=== PATIENT | male | born 1985 | race Caucasian/White ===

== ENCOUNTER 2020-11-05 16:11 | Inpatient (IN) | payer OTHER, SELFPAY ==
[2020-11-05] VITALS (8 sets, daily range): BP systolic 118–125; BP diastolic 68–80; PULSE 91–132; RESP 20–23; TEMP 37.2–39.1; O2SAT 89–96
--- NOTE | ~2020-11-05 | CT_ITS ---
EXAMINATION: CTA chest PE protocol DATE: 11/05/2020 18:16 INDICATION: Shortness of breath. COVID positive. TECHNIQUE: Computed tomography (CT) pulmonary angiogram of the chest was performed with 100 mL Omnipa que-350 intravenous contrast. Additional 3D reconstructions utilizing coronal maximum intensity proje ction (MIP) were performed. Automated exposure control and iterative reconstruction technique were em ployed. The dose-length product was 739.67 mGy-cm. COMPARISON: None FINDINGS: Excellent contrast opacification of the pulmonary arteries. There is mild streak artifact from dense contrast in the superior vena cava and right atrium. Tattered respiratory motion artifact most severe at the left lower lung zone and mild to moderate throughout the remainder of the lungs which decreas es sensitivity in the segmental and subsegmental pulmonary arteries of the lingula and basilar left l ower lobe some of the smaller subsegmental pulmonary arteries and remainder of the bilateral mid and lower lung zones. No definitive pulmonary embolism. Extensive peripheral and lower lung predominant p atchy groundglass opacities with appearance and distribution most consistent with COVID pneumonia. No pleural effusion. Heart size is normal. No pericardial effusion. Thoracic aorta is normal in caliber with no dissection. Mild likely reactive right hilar lymphadenopathy. Visualized upper abdomen is un remarkable. Mild thoracic spondylosis with minimal likely physiologic anterior wedging at T11. IMPRESSION: 1. No definitive pulmonary embolism. Sensitivity is significantly decreased due to respiratory motion in some of the smaller pulmonary arteries particularly at the left lower lung zone. 2. Extensive patchy bilateral peripheral and lower lung predominant lung disease most consistent with COVID pneumonia. 3. Mild likely reactive right hilar lymphadenopathy. Reviewed, dictated and finalized at location A. IMPRESSION: 1. No definitive pulmonary embolism. Sensitivity is significantly decreased due to respiratory motion in some of the smaller pulmonary arteries particularly a t the left lower lung zone. 2. Extensive patchy bilateral peripheral and lower lung predominant lung diseas e most consistent with COVID pneumonia. 3. Mild likely reactive right hilar lymphadenopathy.
--- NOTE | ~2020-11-05 | US_ITS ---
EXAMINATION: US venous doppler LE EXAM DATE: 11/09/2020 16:10 INDICATION: Bilateral cramping legs. TECHNIQUE: Multiple grayscale, color flow and Doppler images of the lower extremity deep venous syste ms bilaterally were obtained and reviewed. There is no prior study for comparison. FINDINGS: Right side: The right common femoral, femoral and profunda veins demonstrate normal color flow, respi ratory variation, augmentation and compressibility. Compressibility, color flow confirmed within the right popliteal, posterior tibial, peroneal, and greater saphenous veins. Left side: The left common femoral, femoral and profunda veins demonstrate normal color flow, respira tory variation, augmentation and compressibility. Compressibility, color flow confirmed within the l eft popliteal, posterior tibial, peroneal, and greater saphenous veins. IMPRESSION: 1. No lower extremity deep venous thrombosis bilaterally. Reviewed, dictated and finalized at location A.
--- NOTE | ~2020-11-05 | XR_ITS ---
EXAMINATION: XR chest 1V portable DATE: 11/10/2020 08:52 INDICATION: Leukocytosis. COVID. TECHNIQUE: frontal view of the chest was obtained. COMPARISON: Chest radiograph and CT dated 11/05/2020 FINDINGS: No significant change in diffuse bilateral peripheral and lower lung predominant patchy airspace opac ities consistent with COVID pneumonia. No pleural effusion or pneumothorax. The cardiomediastinal rigoberto houette is normal. IMPRESSION: 1. No change in diffuse bilateral airspace opacities consistent with COVID pneumonia. Reviewed, dictated and finalized at location A. IMPRESSION: 1. No change in diffuse bilateral airspace opacities consistent with COVID pneu monia.
--- NOTE | ~2020-11-05 | XR_ITS ---
EXAMINATION: XR chest 1V portable DATE: 11/05/2020 16:46 INDICATION: COVID presenting with 3 days of dyspnea TECHNIQUE: frontal view of the chest was obtained. COMPARISON: None FINDINGS: There are patchy airspace opacities throughout both lungs consistent with pneumonia. No pleural effus ion or pneumothorax. The cardiomediastinal silhouette is normal. IMPRESSION: 1. Patchy bilateral lung disease consistent with pneumonia. Reviewed, dictated and finalized at location A.
--- NOTE | 2020-11-05 16:16 | ECG_ITS ---
Measurements Intervals [place] Rate: 117 P: 32 AL: 112 QRS: 44 QRSD: 90 T: 20 QT: 300 QTc: 420 Interpretive Statements SINUS TACHYCARDIA DELAYED PRECORDIAL R/S TRANSITION ABNORMAL ECG Electronically Signed On 11-05-2020 18:44:38 CDT by Alf Esquivel D.O.
[2020-11-05 16:35] LABS: Hemoglobin 12.3 g/dL (14.0-18.0); Mean Corpuscular HGB Conc 36.2 g/dl (32-36); Mean Corpuscular Hemoglobin 32.8 pg (26-34); Mean Corpuscular Volume 90.7 fl (80-100); Mean Platelet Volume 8.4 fl (7.4-10.4); Platelet Count Result 276 k/mm3 (150-375); Red Blood Count 3.75 M/mm3 (4.6-6.20); Red Cell Distribution Width 12.7 % (11.5-14.5); White Blood Count 9.5 K/mm3 (4.5-10.0)
[2020-11-05 16:50] LABS: Anion Gap 10 mmol/L (8-16); Blood Urea Nitrogen 14 mg/dL (9-20); Carbon Dioxide 22 mmol/L (22-30); Chloride 102 mmol/L (98-107); Estimated CRCL calculation 121 ml/min; Estimated Glomerular Filt Rate > 60; Glucose 143 mg/dL (65-110); Potassium 3.9 mmol/L (3.4-5.0); Sodium 134 mmol/L (137-145)
[2020-11-05 17:03] LABS: Band Neutrophils Percent 1 % (0-6); Lymphocytes Absolute Manual 1.04 K/mm3 (1.1-4.5); Monocytes Absolute Manual 0.66 K/mm3 (0.1-0.90); Monocytes Percent Manual 7 % (3-9); Neutrophils Absolute Manual 7.79 K/mm3 (1.3-6.7); Neutrophils Percent Manual 81 % (46-73); Platelet Estimate Adequate (Adequate); Total Cells Counted 100
[2020-11-05 17:28] LABS: D Dimer 7.79 ug/mL (<0.48)
--- NOTE | 2020-11-05 19:51 | PC.NURSE ---
ambulated pt to room, pt saturation dropped to 89% on R. provider aware
--- NOTE | 2020-11-05 20:09 | ED.SOB ---
HPI - SOB/Dyspnea General Chief Complaint: Shortness of Breath/Dyspnea Stated Complaint: covid+/ SOB Time Seen by Provider: 11/05/20 19:43 History of Present Illness HPI Narrative: Patient is a 35-year-old male who presents ER with shortness of breath. Recently diagnosed with COVID-19. Has had an increase shortness of breath with persistent cough. Nonproductive. Endorses fevers and chills. He is unvaccinated. With ambulation to the room he was satting in the upper 80s. Patient does endorse fatigue. Patient also reports chest/back pain with deep breath. Related Data Home Medications Medication Instructions Recorded Confirmed gemfibrozil 600 mg PO BID 11/06/20 11/06/20 Allergies Allergy/AdvReac Type Severity Reaction Status Date / Time No Known Allergies Allergy Verified 11/05/20 23:45 Review of Systems Review of Systems: All systems reviewed & are unremarkable except as noted in HPI and below Constitutional: Constitutional: Reports chills, Reports fatigue, Reports fever(s) and Reports weakness ENT: Denies nasal congestion and Denies sore throat Cardiovascular: Cardiovascular: Reports chest pain, Denies rapid heart rate and Denies radiating jaw, neck or arm pain Respiratory: Respiratory: Reports cough, Reports dyspnea and Denies wheezing Gastrointestinal: Gastrointestinal: Denies abdominal pain, Denies nausea and Denies vomiting Musculoskeletal: Musculoskeletal: Denies arthralgias and Denies muscle cramps PMFSH Past Medical History Medical History (Updated 11/06/20 @ 20:20 by Chema Rehman MD) Hyperlipidemia Surgical History Surgical History (Updated 11/06/20 @ 20:19 by Chema Rehman MD) No pertinent past surgical history Family History Family History (Updated 11/05/20 @ 23:56 by Caroline Puri RN) Father Lung cancer Cancer of pancreas Mother Diabetes mellitus Social History Social History Smoking status: Former smoker Tobacco type: cigarettes Second hand tobacco smoke exposure: No Additional smoking assessment comments: q 4 mths pack lasted Alcohol intake: former Substance use: never Spiritual care concerns: No Exam Narrative: GENERAL: Unwell-appearing, well-nourished, and in no acute distress. HEAD: Normocephalic, atraumatic. EYES: PERRL and EOMI. CHEST: Clear to auscultation. No respiratory distress. HEART: Regular rate and rhythm. Normal peripheral pulses. ABDOMEN: Soft, nontender, nondistended. EXTREMITIES: Normal range of motion. No edema. SKIN: Warm, dry, no rash. NEURO: Alert and oriented x3. PSYCH: Normal mood and affect. Course Course Emergency Course: Patient would benefit from admission and IV steroids. May be a candidate for remdesivir and will discuss with hospitalist. Vital Signs Vital signs: Vital Signs Temperature 99.1 F 11/05/20 16:18 Pulse Rate 116 H 11/05/20 16:18 Respiratory Rate 20 11/05/20 16:18 Blood Pressure 125/68 11/05/20 16:18 Pulse Oximetry 94 11/05/20 16:18 Temperature 98.4 F 11/06/20 16:00 Pulse Rate 94 11/06/20 16:00 Respiratory Rate 20 11/06/20 16:00 Blood Pressure 116/74 11/06/20 16:00 Pulse Oximetry 93 11/06/20 16:00 MDM - SOB/Dyspnea Lab Data Result diagrams: 11/05/20 16:23 11/06/20 06:09 Labs: Lab Results 11/05/20 11/05/20 11/05/20 Range/Units 16:23 16:23 16:23 WBC 9.5 (4.5-10.0) K/mm3 RBC 3.75 L (4.6-6.20) M/mm3 Hgb 12.3 L (14.0-18.0) g/dL Hct 34.0 L (42.0-52.0) % MCV 90.7 (80-100) fl MCH 32.8 (26-34) pg MCHC 36.2 H (32-36) g/dl RDW 12.7 (11.5-14.5) % Plt Count 276 (150-375) k/mm3 MPV 8.4 (7.4-10.4) fl Immature Gran % (Auto) Not Reportable Neut % (Auto) Not Reportable Lymph % (Auto) Not Reportable [place] % (Auto) Not Reportable Eos % (Auto) Not Reportable Baso % (Auto) Not Reportable Lymph # (Auto) Not Reportable [place] # (Auto) Not
[2020-11-05] MEDS: DEXAMETHASONE SOD PHOS INJ 4 MG/ML VIAL 6 MG IV PUSH (21:02)
[2020-11-05] MEDS: ACETAMINOPHEN 500 MG TABLET 1000 MG PO (21:49)
--- NOTE | 2020-11-05 22:57 | PM.IMHP ---
H&P: HPI History of Present Illness Date/Time: 11/05/20 22:57 Chief Complaint: SHORTNESS OF BREATH Narrative: THIS IS 35-YEAR-OLD MALE WITH PAST MEDICAL HISTORY OF HYPERLIPIDEMIA PRESENTS TO THE HOSPITAL WITH INCREASED SHORTNESS OF BREATH. HE STATES THAT HE WAS HAVING HIS SOME SYMPTOMS OF COVID WHICH INCLUDES COUGH AND FEVER STARTED SINCE SATURDAY/FOR WHICH HE WENT TO GET HIS COVID TEST DONE WHICH CAME BACK POSITIVE. HE WAS DOING FINE HOWEVER I STARTED GETTING PROGRESSIVELY GET WORSE WITH THE INCREASING SHORTNESS OF BREATH AND HENCE CAME TO THE ER FOR EVALUATION TODAY. PATIENT WAS TACHYCARDIC WITH MILD FEVER ON ADMISSION WHICH BUMPED UP TO FEVER OF 102.3 AND HYPOXIA OF 89% ON ROOM AIR FOR WHICH HE WAS PLACED ON SUPPLEMENTAL OXYGEN. HE WAS FURTHER EVALUATED CHEST X-RAY WHICH SHOWED PNEUMONIA BILATERALLY TYPICAL OF COVID. D-DIMER WAS ELEVATED AND HEAD CT WAS DONE WHICH CAME BACK NEGATIVE FOR PE BUT SHOWED FINDINGS OF COVID 19 RELATED PNEUMONIA. WITH HYPOXIA HE WAS STARTED ON DECADRON AND WAS ADMITTED FOR FURTHER EVALUATION AND MANAGEMENT. Review of Systems Review of Systems: - CONSTITUTIONAL: Denies weight loss, REPORTS fever and chills. - HEENT: Denies changes in vision and hearing - RESPIRATORY: REPORTS SOB and cough. - CV: Denies palpitations and CP. - GI: Denies abdominal pain, nausea, vomiting and diarrhea. - : Denies dysuria and urinary frequency. - MSK: Denies myalgia and joint pain. - SKIN: Denies rash and pruritus. - NEUROLOGICAL: Denies headache and syncope. - PSYCHIATRIC: Denies recent changes in mood. Denies anxiety and depression. All systems reviewed & are unremarkable except as noted in HPI and below Constitutional: Constitutional: Reports fatigue and Reports weakness Neurologic: Reports weakness Endocrine: Endocrine: Reports fatigue [facility] Family History Family History (Updated 11/05/20 @ 23:56 by Caroline Puri RN) Father Lung cancer Cancer of pancreas Mother Diabetes mellitus Social History Social History Smoking status: Former smoker Tobacco type: cigarettes Second hand tobacco smoke exposure: No Additional smoking assessment comments: q 4 mths pack lasted Alcohol intake: former Substance use: never Spiritual care concerns: No Meds Home Medications and Allergies Home Medications Medication Instructions Recorded Confirmed Type gemfibrozil 600 mg PO BID 11/06/20 11/06/20 History Allergies Allergy/AdvReac Type Severity Reaction Status Date / Time No Known Allergies Allergy Verified 11/05/20 23:45 Vital Signs Vital Signs - 24 hr 11/05/20 16:18 11/05/20 19:51 11/05/20 20:15 Temperature 99.1 F Pulse Rate 116 H 132 H Respiratory Rate 20 22 H Blood Pressure 125/68 Pulse Oximetry 94 89 L 92 11/05/20 20:20 11/05/20 20:45 11/05/20 21:12 Temperature 102.3 F H Pulse Rate 110 H 107 H Respiratory Rate 23 H 22 H Blood Pressure 121/78 123/80 Pulse Oximetry 95 96 95 Exam Narrative: GENERAL: The patient is well developed, not in acute distress HEENT: Nonicteric sclerae, PERRLA, EOMI. Oropharynx clear. Moist mucous membranes. Conjunctivae appear well perfused. CHEST: Chest wall is nontender. HEART: Regular rate and rhythm without murmur, rubs, or gallops LUNGS: BILATERAL CRACKLES. no respiratory distress ABDOMEN: Soft, positive bowel sounds, non-tender, no organomegaly. SKIN: No rash, no excessive bruising, petechiae, or purpura. NEUROLOGIC: Cranial nerves II-XII intact, alert and oriented x 3, no gross motor deficits EXTREMITIES: no edema, cyanosis or clubbing Extrem: General: normal exam except as noted and no edema H&P: Results Labs Labs: Short CBC 11/05/20 Range/Units 16:23 WBC 9.5 (4.5-10.0) K/mm3 Hgb 12.3 L (14.0-18.0) g/dL Hct 34.0 L (42.0-52.0) % Plt Count 276 (150-375) k/mm3 [facility] 11/05/20 16:23 Sodium 134 L Potassium 3.9 Chloride 102 Carbon Dioxide 22 BUN 14 Creatinine 0.9
--- NOTE | 2020-11-05 23:48 | ADMGEN ---
This patient, Diego Medley, was admitted to [facility] Surg Room 321-01 at 23:30. Patient/family oriented to hospital policies and general routines including ID bracelet, bed and alarms, visiting hours, pain management, procedures, bathroom and other care routines, personal items, smoking policy, room service/diet, and visiting hours. Information on how to activate the Rapid Response Team has been discussed. Patient/Family are encouraged to report perceived risks to care and to ask questions if they do not understand what they are told or what they should do.
--- NOTE | 2020-11-05 23:49 | ADMGEN ---
This patient, Diego Medley, was admitted to 3 [facility] Surg Room 321-01. Patient/family oriented to hospital policies and general routines including ID bracelet, bed and alarms, visiting hours, pain management, procedures, bathroom and other care routines, personal items, smoking policy, room service/diet, and visiting hours. Information on how to activate the Rapid Response Team has been discussed. Patient/Family are encouraged to report perceived risks to care and to ask questions if they do not understand what they are told or what they should do.
[2020-11-06] VITALS (11 sets, daily range): BP systolic 106–127; BP diastolic 65–80; PULSE 73–94; RESP 18–20; TEMP 36–36.9; O2SAT 92–97; BMI 32.2
[2020-11-06 01:07] LABS: Procalcitonin 1.1 ng/mL
[2020-11-06 01:25] LABS: Alanine Aminotransferase 95 U/L (4-50); Estimated CRCL calculation 122 ml/min; Estimated Glomerular Filt Rate > 60
[2020-11-06] MEDS: gemfibroziL 600 MG TABLET PO ×2 (06:37→17:38)
[2020-11-06] MEDS: HYDROcodone/acetaminophen (*CRX) 5-325 MG TABLET 1 TAB PO ×2 (06:41→22:17)
[2020-11-06] MEDS: guaiFENesin/DEXTROMETHORPHAN 10 ML UDC PO ×3 (07:02→22:17)
[2020-11-06 07:20] LABS: INR 1.1; Prothrombin Time 14.2 Seconds (11.1-14.7)
[2020-11-06 07:29] LABS: Alanine Aminotransferase 99 U/L (4-50); Estimated CRCL calculation 122 ml/min; Estimated Glomerular Filt Rate > 60
[2020-11-06] MEDS: REMDESIVIR 200 MG/NS 250 ML 200 MG/250 ML BAG 250 MG IVPB (08:25)
[2020-11-06] MEDS: ENOXAPARIN 40 MG/0.4 ML SYRINGE SUB-Q ×2 (08:25→20:12)
[2020-11-06] MEDS: ALBUTEROL SULFATE (*SP) INHALER 4 PUFF INHALATION ×3 (09:04→21:50)
[2020-11-06 11:38] LABS: CRP 32.8 mg/dL (<1.0)
[2020-11-06 12:29] LABS: Lactate Dehydrogenase 1538 U/L (313-618)
--- NOTE | 2020-11-06 12:38 | PM.IMPN ---
Progress Note: A&P Assessment and Plan (1) Pneumonia due to COVID-19 virus: Code(s): U07.1 - COVID-19; J12.82 - Pneumonia due to coronavirus disease 2019 Status: Acute Assessment and Plan: Patient was tested positive for COVID on Saturday11/02/2020 Shortness of breath with activity in talking Patient found to be hypoxic at 89% on room air Supplemental oxygen wean to maintain a saturation greater than 92% Remdesivir and Decadron x5 days (day 1) Lovenox 40 mg subQ q.12 D-dimer elevated at 7.79 Will check inflammatory markers tomorrow Consider Actemra if oxygen requirement continues to elevate CTA negative for PE did show COVID pneumonia Inhalers Guaifenesin 600 mg q.12 Encourage prone positioning (2) Acute respiratory failure with hypoxia: Code(s): J96.01 - Acute respiratory failure with hypoxia Status: Acute Assessment and Plan: See above (3) Elevated d-dimer: Code(s): R79.89 - Other specified abnormal findings of blood chemistry Status: Acute Assessment and Plan: D-dimer 7.79 CTA showed COVID and PE Trend labs Labs in a.m. (4) Hyperlipidemia: Code(s): E78.5 - Hyperlipidemia, unspecified Status: Acute Assessment and Plan: Continue home medications Lipid panel in the a.m. Time Spent With Patient Time with patient: Greater than 35 minutes Subjective Date/time seen: 11/06/20 10:00 Interval history: Patient is a 35-year-old female with a past medical history of hyperlipidemia who presented to the ED with increased shortness of breath. Patient stated that he is a little bit better still day if not the same. He states that he gets shortness of breath with moving, lots of activity, talking. He also stated that his urine has been dark yellow his appetite has been suppressed. He stated that he is trying to drink more however it has been really hard. He also has a cough that is producing a white clear thick bloody sputum. He is also complaining of congestion. He still the taste and smell however they are offset. Patient denies chest pain, weakness, fatigue, nausea, vomiting, abdominal pain. Patient stated that he was not COVID vaccinated because he said that he has been fine thus far and thought he could scoot through this without needing it. Patient is currently on 2 L nasal cannula. Instruction encouragement of laying prone was given. Review of Systems Review of Systems: All systems reviewed & are unremarkable except as noted in HPI and below Exam Const: General: cooperative, no acute distress, well developed, alert, awake, ill appearing and tired appearing Nutritional Appearance: well nourished Orientation/consciousness: patient oriented x3 Limitations: no limitations HENMT: Head: normal to inspection Ears: hearing grossly normal bilaterally General nose exam: Normal external nose present Mouth: Yes Normal oral and palatal mucosa present, Yes lip normal and Yes tongue normal Teeth and gingiva: abnormal tooth and associated gingiva and poor dentition Eyes: General: appearance normal, both eyes and all related structures Neck: Neck: normal visual inspection, full ROM, trachea midline and supple Chest: Chest palpation & inspection: normal inspection of the chest Resp: Effort & Inspection: normal respiratory effort and able to speak in complete sentences Auscultation: clear to auscultation bilaterally Cardio: Jugular venous distension: no JVD Rate: regular rate Rhythm: regular rhythm Heart sounds: S1 normal heart sound present and S2 normal heart sound present Peripheral pulses: Peripheral pulses 2+ throughout GI: Inspection: normal to inspection GI Palp: Yes Soft to palpation and No Tenderness to palpation present (GI) Auscultation: normal bowel sounds Skin: General skin exam: normal color and no rashes or lesions noted Lesions: no lesions Rashes: no rashes Trauma: no laceration
--- NOTE | 2020-11-06 16:51 | PCRCNOTE ---
Window of time for administration has passed. See next scheduled administration.
[2020-11-06] MEDS: ACETAMINOPHEN 325 MG TABLET 650 MG PO (17:40)
[2020-11-06] MEDS: MELATONIN 5 MG TABLET 10 MG PO (22:12)
[2020-11-07] VITALS (9 sets, daily range): BP systolic 103–123; BP diastolic 60–76; PULSE 72–85; RESP 16–20; TEMP 36–37.1; O2SAT 90–98
[2020-11-07] MEDS: SALINE 0.65% NAS SOLN 44 ML BTL 1 SPRAY NASAL (00:29)
[2020-11-07] MEDS: CALCIUM CARBONATE (TUMS) 500 MG (200 MG ELEMENTAL) PO ×2 (00:29→20:40)
[2020-11-07] MEDS: ALBUTEROL SULFATE (*SP) INHALER 4 PUFF INHALATION ×4 (04:02→22:12)
[2020-11-07 06:39] LABS: Basophils Percent Auto 0.2 % (0.2-1.2); Hematocrit 33.1 % (42.0-52.0); Hemoglobin 11.6 g/dL (14.0-18.0); Immature Granulocyte Absolute 0.17 K/mm3 (0.00-0.031); Immature Granulocyte Percent A 1.6 % (0-0.5); Lymphocytes Absolute Auto 1.24 K/mm3 (0.9-3.2); Lymphocytes Percent Auto 11.7 % (18.3-44.2); Mean Corpuscular Hemoglobin 32.1 pg (26-34); Mean Corpuscular Volume 91.7 fl (80-100); Mean Platelet Volume 8.8 fl (7.4-10.4); Monocytes Percent Auto 9.2 % (2.6-8.5); Neutrophils Absolute Auto 8.2 K/mm3 (1.3-6.7); Neutrophils Percent Auto 77.3 % (45.5-73.1); Platelet Count Result 385 k/mm3 (150-375); Red Blood Count 3.61 M/mm3 (4.6-6.20); Red Cell Distribution Width 12.6 % (11.5-14.5); White Blood Count 10.6 K/mm3 (4.5-10.0)
[2020-11-07 06:48] LABS: INR 1.2; Prothrombin Time 14.7 Seconds (11.1-14.7)
[2020-11-07] MEDS: gemfibroziL 600 MG TABLET PO ×2 (06:53→17:50)
[2020-11-07 07:01] LABS: Alanine Aminotransferase 108 U/L (4-50); Albumin Level 3.6 g/dL (3.5-5.1); Alkaline Phosphatase 75 U/L (38-126); Anion Gap 9 mmol/L (8-16); Aspartate Amino Transferase 85 U/L (17-59); Bilirubin,Total 0.6 mg/dL (0.2-1.3); Blood Urea Nitrogen 16 mg/dL (9-20); Calcium 9.2 mg/dL (8.4-10.2); Carbon Dioxide 23 mmol/L (22-30); Chloride 106 mmol/L (98-107); Estimated CRCL calculation 136 ml/min; Estimated Glomerular Filt Rate > 60; Glucose 140 mg/dL (65-110); Magnesium 2.1 mg/dL (1.6-2.3); Potassium 3.8 mmol/L (3.4-5.0); Sodium 138 mmol/L (137-145)
[2020-11-07] MEDS: ENOXAPARIN 40 MG/0.4 ML SYRINGE SUB-Q ×2 (09:32→20:40)
[2020-11-07] MEDS: REMDESIVIR 100 MG/NS 250 ML 100 MG/250 ML BAG 250 MG IVPB (09:55)
--- NOTE | 2020-11-07 13:34 | PM.IMPN ---
Progress Note: A&P Assessment and Plan (1) Pneumonia due to COVID-19 virus: Code(s): U07.1 - COVID-19; J12.82 - Pneumonia due to coronavirus disease 2019 Status: Acute Assessment and Plan: Patient was tested positive for COVID on Saturday11/02/2020 Shortness of breath with activity in talking 88% on room air today Supplemental oxygen wean to maintain a saturation greater than 92% Remdesivir and Decadron x5 days (day 1) Lovenox 40 mg subQ q.12 D-dimer elevated at 7.79, will repeat tomorrow Will check inflammatory markers tomorrow Consider Actemra if oxygen requirement continues to elevate CTA negative for PE did show COVID pneumonia Inhalers Guaifenesin 600 mg q.12 Encourage prone positioning (2) Acute respiratory failure with hypoxia: Code(s): J96.01 - Acute respiratory failure with hypoxia Status: Acute Assessment and Plan: See above (3) Elevated d-dimer: Code(s): R79.89 - Other specified abnormal findings of blood chemistry Status: Acute Assessment and Plan: D-dimer 7.79 CTA showed COVID and PE Trend labs Labs in a.m. (4) Hyperlipidemia: Code(s): E78.5 - Hyperlipidemia, unspecified Status: Acute Assessment and Plan: Continue home medications Time Spent With Patient Time with patient: Greater than 35 minutes Subjective Date/time seen: 11/07/20 13:34 Interval history: Patient is a 35-year-old female with a past medical history of hyperlipidemia who presented to the ED with increased shortness of breath. patient stated that he feels about the same today. He did do some prone positioning yesterday he did say that his cough is little worse today. He stated his cough was dry sometimes productive other times. His sputum is gutierrez and frothy. Patient did say that he was weak and tired and does get short of breath with activity. He was able to have 2 bowel movements yesterday that were diarrhea in nature. He also stated that he was having issues with GERD. Patient denies chest pain, weakness, fatigue, nausea, vomiting, abdominal pain. Review of Systems Review of Systems: All systems reviewed & are unremarkable except as noted in HPI and below Exam Const: General: cooperative, no acute distress, well developed, alert, awake, ill appearing and tired appearing Nutritional Appearance: well nourished Orientation/consciousness: patient oriented x3 Limitations: no limitations HENMT: Head: normal to inspection Ears: hearing grossly normal bilaterally General nose exam: Normal external nose present Mouth: Yes Normal oral and palatal mucosa present, Yes lip normal and Yes tongue normal Teeth and gingiva: abnormal tooth and associated gingiva and poor dentition Eyes: General: appearance normal, both eyes and all related structures Neck: Neck: normal visual inspection, full ROM, trachea midline and supple Chest: Chest palpation & inspection: normal inspection of the chest Resp: Effort & Inspection: normal respiratory effort and able to speak in complete sentences Auscultation: clear to auscultation bilaterally Cardio: Jugular venous distension: no JVD Rate: regular rate Rhythm: regular rhythm Heart sounds: S1 normal heart sound present and S2 normal heart sound present Peripheral pulses: Peripheral pulses 2+ throughout GI: Inspection: normal to inspection Auscultation: normal bowel sounds Skin: General skin exam: normal color and no rashes or lesions noted Lesions: no lesions Rashes: no rashes Trauma: no lacerations or abrasions Wounds: no wounds Hair: normal Nails: normal Neuro: General: patient oriented x3, moves all extremities and Normal light touch and pain sensation Speech: normal speech Gait exam (Neuro): Normal gait present Extrem: General: normal to inspection, normal exam except as noted and no edema Right upper extremity: normal to inspection Left upper extremity: no
[2020-11-07] MEDS: FAMOTIDINE 20 MG TABLET PO (20:40)
[2020-11-07] MEDS: guaiFENesin/DEXTROMETHORPHAN 10 ML UDC PO (20:40)
[2020-11-07] MEDS: MELATONIN 5 MG TABLET 10 MG PO (20:40)
[2020-11-07] MEDS: HYDROcodone/acetaminophen (*CRX) 5-325 MG TABLET 1 TAB PO (20:40)
[2020-11-08] VITALS (10 sets, daily range): BP systolic 111–127; BP diastolic 62–78; PULSE 70–104; RESP 16–20; TEMP 36.3–37.1; O2SAT 92–95
[2020-11-08] MEDS: ALBUTEROL SULFATE (*SP) INHALER 4 PUFF INHALATION ×4 (02:32→21:00)
[2020-11-08 07:26] LABS: Basophils Percent Auto 0.2 % (0.2-1.2); Eosinophils Absolute Auto 0.1 K/mm3 (0-0.3); Eosinophils Percent Auto 0.5 % (0-4.4); Hematocrit 33.8 % (42.0-52.0); Hemoglobin 11.8 g/dL (14.0-18.0); Immature Granulocyte Absolute 0.25 K/mm3 (0.00-0.031); Immature Granulocyte Percent A 2.2 % (0-0.5); Lymphocytes Absolute Auto 1.66 K/mm3 (0.9-3.2); Lymphocytes Percent Auto 14.5 % (18.3-44.2); Mean Corpuscular HGB Conc 34.9 g/dl (32-36); Mean Corpuscular Hemoglobin 33.1 pg (26-34); Mean Corpuscular Volume 94.9 fl (80-100); Mean Platelet Volume 8.5 fl (7.4-10.4); Monocytes Absolute Auto 0.9 K/mm3 (0.1-0.6); Monocytes Percent Auto 8.1 % (2.6-8.5); Neutrophils Absolute Auto 8.6 K/mm3 (1.3-6.7); Neutrophils Percent Auto 74.5 % (45.5-73.1); Platelet Count Result 373 k/mm3 (150-375); Red Blood Count 3.56 M/mm3 (4.6-6.20); White Blood Count 11.5 K/mm3 (4.5-10.0)
[2020-11-08 07:45] LABS: Alanine Aminotransferase 111 U/L (4-50); Albumin Level 3.6 g/dL (3.5-5.1); Alkaline Phosphatase 74 U/L (38-126); Anion Gap 8 mmol/L (8-16); Aspartate Amino Transferase 82 U/L (17-59); Bilirubin,Total 0.7 mg/dL (0.2-1.3); Blood Urea Nitrogen 13 mg/dL (9-20); CRP 5.9 mg/dL (<1.0); Calcium 8.7 mg/dL (8.4-10.2); Carbon Dioxide 24 mmol/L (22-30); Chloride 106 mmol/L (98-107); Estimated CRCL calculation 136 ml/min; Estimated Glomerular Filt Rate > 60; Glucose 95 mg/dL (65-110); Lactate Dehydrogenase 1179 U/L (313-618); Magnesium 1.9 mg/dL (1.6-2.3); Potassium 4.1 mmol/L (3.4-5.0); Sodium 138 mmol/L (137-145)
[2020-11-08 07:59] LABS: INR 1.2; Prothrombin Time 15.2 Seconds (11.1-14.7)
[2020-11-08] MEDS: gemfibroziL 600 MG TABLET PO ×2 (08:00→16:05)
[2020-11-08 08:02] LABS: D Dimer 3.37 ug/mL (<0.48)
[2020-11-08] MEDS: ENOXAPARIN 40 MG/0.4 ML SYRINGE SUB-Q (09:16)
[2020-11-08] MEDS: FAMOTIDINE 20 MG TABLET PO ×2 (09:16→20:13)
[2020-11-08] MEDS: BENZOCAINE/MENTHOL (*BKC) 18 EA LOZENGE 1 LOZENGE PO (09:18)
[2020-11-08] MEDS: REMDESIVIR 100 MG/NS 250 ML 100 MG/250 ML BAG 250 MG IVPB (10:04)
--- NOTE | 2020-11-08 15:16 | PM.IMPN ---
Progress Note: A&P Assessment and Plan (1) Pneumonia due to COVID-19 virus: Code(s): U07.1 - COVID-19; J12.82 - Pneumonia due to coronavirus disease 2019 Status: Acute Assessment and Plan: Patient was tested positive for COVID on Saturday11/02/2020 Shortness of breath with activity in talking 96% on 2L via NC. Supplemental oxygen wean to maintain a saturation greater than 92% Remdesivir and Decadron x5 days (day #2) Lovenox 40 mg subQ daily D-dimer elevated at 7.79, repeat today decreased to 3.37, LDH decreased 1538 to 1179, CRP decreased 32.8 to 5.9. Consider Tocilizumab if oxygen requirement continues to elevate CTA negative for PE, but did show COVID pneumonia Inhalers Q6hrs scheduled Guaifenesin 600 mg q.12 Encourage prone positioning (2) Acute respiratory failure with hypoxia: Code(s): J96.01 - Acute respiratory failure with hypoxia Status: Acute Assessment and Plan: See above (3) Elevated d-dimer: Code(s): R79.89 - Other specified abnormal findings of blood chemistry Status: Acute Assessment and Plan: CTA showed COVID and PE Decreased with other inflammatory markers, elevated due to COVID PNA (4) Hyperlipidemia: Code(s): E78.5 - Hyperlipidemia, unspecified Status: Acute Assessment and Plan: Continue home medications Time Spent With Patient Time with patient: 25 - 35 minutes Subjective Date/time seen: 11/08/20 15:16 Interval history: Patient is a 35-year-old female with a past medical history of hyperlipidemia who presented to the ED with increased shortness of breath after having a Positive COVID Test 11/02/20 and he was Unvaccinated. Date of service 11/08/2020: Patient reports feeling about the same as he did yesterday. He still having some shortness of breath at times, trouble taking deep breath, dry cough. He has some lightheadedness and dizziness when walking to the bathroom. He has some tenderness to palpation of his chest wall due to his coughing. Denies any fevers, chills, nausea, vomiting, abdominal pain, leg swelling, calf pain, or any other symptoms at this time. Review of Systems Review of Systems: All systems reviewed & are unremarkable except as noted in HPI and below Exam Narrative: General: 35-year-old man sitting up the chair eating lunch. Appears comfortable on 2L via NC with O2 96%. Walked him to the bathroom without any hypoxemia with exertion. In no acute distress. Skin: No jaundice or cyanosis. Good skin turgor. Neck: Full range of motion. Supple. Respiratory: Lungs are clear to auscultation bilaterally. No wheezing, rales or rhonchi. Some reproducible tenderness to palpation of chest wall diffusely. No signs of trauma. Cardiovascular: The heart has a regular rate and rhythm without murmur. Lower extremities: No lower extremity edema. Distal pulses are easily palpated. No calf tenderness to palpation. Gastrointestinal: The abdomen is soft, nontender and nondistended with active bowel sounds. Psychiatric: Lucid and oriented. Memory intact. Neurologic: No focal deficits. Speech is clear. No facial drooping. Objective Data Vital Signs Vital Signs: Vital Signs - 24 hr 11/07/20 15:25 11/07/20 16:00 11/07/20 20:00 Temperature 98.7 F 98.4 F Pulse Rate 78 80 Respiratory Rate 18 20 Blood Pressure 122/69 122/75 Pulse Oximetry 98 94 92 11/07/20 22:16 11/08/20 00:00 11/08/20 02:33 Temperature 98.1 F Pulse Rate 74 78 70 Respiratory Rate 20 Blood Pressure 116/68 Pulse Oximetry 96 94 11/08/20 04:00 11/08/20 08:00 11/08/20 09:20 Temperature 97.4 F L 98.7 F Pulse Rate 104 H 101 H 71 Respiratory Rate 18 18 20 Blood Pressure 122/62 123/78 Pulse Oximetry 94 95 11/08/20 12:00 11/08/20 14:09 Temperature 98.4 F Pulse Rate 89 70 Respiratory Rate 16 20 Blood Pressure 127/74 Pulse Oximetry 94 Intake/Output Int
[2020-11-08] MEDS: guaiFENesin/DEXTROMETHORPHAN 10 ML UDC PO (20:11)
[2020-11-08] MEDS: HYDROcodone/acetaminophen (*CRX) 5-325 MG TABLET 1 TAB PO (20:11)
[2020-11-08] MEDS: MELATONIN 5 MG TABLET 10 MG PO (20:13)
[2020-11-08] MEDS: SODIUM CHLORIDE NASAL GEL 14.1 GM 1 APPLIC NASAL (20:13)
[2020-11-08] MEDS: CALCIUM CARBONATE (TUMS) 500 MG (200 MG ELEMENTAL) PO (20:15)
[2020-11-09] VITALS (11 sets, daily range): BP systolic 103–139; BP diastolic 64–83; PULSE 60–100; RESP 18–20; TEMP 36.1–36.9; O2SAT 92–98
[2020-11-09] MEDS: ALBUTEROL SULFATE (*SP) INHALER 4 PUFF INHALATION ×4 (02:30→20:37)
[2020-11-09] MEDS: gemfibroziL 600 MG TABLET PO ×2 (06:46→18:01)
[2020-11-09 07:05] LABS: INR 1.2; Prothrombin Time 15.1 Seconds (11.1-14.7)
[2020-11-09 07:09] LABS: Alanine Aminotransferase 150 U/L (4-50); Estimated CRCL calculation 136 ml/min; Estimated Glomerular Filt Rate > 60
[2020-11-09] MEDS: ENOXAPARIN 40 MG/0.4 ML SYRINGE SUB-Q (10:33)
[2020-11-09] MEDS: REMDESIVIR 100 MG/NS 250 ML 100 MG/250 ML BAG 250 MG IVPB (10:33)
[2020-11-09] MEDS: FAMOTIDINE 20 MG TABLET PO ×2 (10:34→21:40)
[2020-11-09] MEDS: guaiFENesin/DEXTROMETHORPHAN 10 ML UDC PO ×3 (10:48→21:38)
--- NOTE | 2020-11-09 15:34 | PM.IMPN ---
Progress Note: A&P Assessment and Plan (1) Pneumonia due to COVID-19 virus: Code(s): U07.1 - COVID-19; J12.82 - Pneumonia due to coronavirus disease 2019 Status: Acute Assessment and Plan: Patient was tested positive for COVID on Saturday11/02/2020 Shortness of breath with activity and talking 96% on 1.5 L via NC. Supplemental oxygen wean to maintain a saturation greater than 90% Remdesivir and Decadron x5 days (day #4) Lovenox 40 mg subQ daily D-dimer elevated at 7.79, repeat yesterday decreased to 3.37, LDH decreased 1538 to 1179, CRP decreased 32.8 to 5.9. Consider Tocilizumab if oxygen requirement continues to elevate CTA negative for PE, but did show COVID pneumonia Inhalers Q6hrs scheduled Guaifenesin 600 mg q.12 Encourage prone positioning (2) Acute respiratory failure with hypoxia: Code(s): J96.01 - Acute respiratory failure with hypoxia Status: Acute Assessment and Plan: See above (3) Elevated d-dimer: Code(s): R79.89 - Other specified abnormal findings of blood chemistry Status: Acute Assessment and Plan: CTA showed COVID and PE Decreased with other inflammatory markers, elevated due to COVID PNA (4) Hyperlipidemia: Code(s): E78.5 - Hyperlipidemia, unspecified Status: Acute Assessment and Plan: Continue home medications Time Spent With Patient Time with patient: 25 - 35 minutes Subjective Date/time seen: 11/09/20 15:34 Interval history: Patient is a 35-year-old female with a past medical history of hyperlipidemia who presented to the ED with increased shortness of breath after having a Positive COVID Test 11/02/20 and he was Unvaccinated. Date of service 11/09/2020: Patient reports developing bilateral calf cramping, numbness and tingling which began overnight. The patient does report a history of leg cramps for which he usually takes fish oil, multivitamin for his symptoms. He denies similar symptoms in his normal leg cramping. He denies any leg swelling, redness or warmth. Patient reports feeling about the same as he did yesterday with his breathing. He still having some shortness of breath at times, trouble taking deep breath, dry cough. He has some lightheadedness and dizziness when walking to the bathroom. He has some tenderness to palpation of his chest wall due to his coughing. Denies any fevers, chills, nausea, vomiting, abdominal pain, leg swelling, calf pain, or any other symptoms at this time. Review of Systems Review of Systems: All systems reviewed & are unremarkable except as noted in HPI and below Exam Narrative: General: 35-year-old man sitting up the chair watching TV. Appears comfortable on 1.5L via NC. In no acute distress. Skin: No jaundice or cyanosis. Good skin turgor. Neck: Full range of motion. Supple. Respiratory: Lungs are clear to auscultation bilaterally. No wheezing, rales or rhonchi. Cardiovascular: The heart has a regular rate and rhythm without murmur. Lower extremities: No lower extremity edema. Distal pulses are easily palpated. No calf tenderness to palpation. Gastrointestinal: The abdomen is soft, nontender and nondistended with active bowel sounds. Psychiatric: Lucid and oriented. Memory intact. Neurologic: No focal deficits. Speech is clear. No facial drooping. Objective Data Vital Signs Vital Signs: Vital Signs - 24 hr 11/08/20 16:00 11/08/20 20:00 11/08/20 21:00 Temperature 98.4 F 98.3 F Pulse Rate 94 75 Respiratory Rate 16 20 Blood Pressure 114/67 111/74 Pulse Oximetry 93 92 93 11/09/20 00:00 11/09/20 04:00 11/09/20 07:51 Temperature 98.0 F 98.1 F Pulse Rate 74 69 Respiratory Rate 20 20 Blood Pressure 120/71 139/83 Pulse Oximetry 92 94 93 11/09/20 08:00 11/09/20 12:00 Temperature 98.4 F 97.8 F Pulse Rate 100 82 Respiratory Rate 18 18 Blood Pressure 122/74 112/74 Pulse Oximetry 94 9
[2020-11-09] MEDS: OMEGA 3 POLYUNSAT FATTY ACIDS 1 GM CAP PO (18:01)
[2020-11-09] MEDS: MULTIVITAMINS THERAPEUTIC TAB (*BKC) 1 TABLET PO (18:01)
[2020-11-09] MEDS: HYDROcodone/acetaminophen (*CRX) 5-325 MG TABLET 1 TAB PO ×2 (18:01→21:41)
[2020-11-09] MEDS: BENZOCAINE/MENTHOL (*BKC) 18 EA LOZENGE 1 LOZENGE PO (18:02)
[2020-11-09] MEDS: CALCIUM CARBONATE (TUMS) 500 MG (200 MG ELEMENTAL) PO (21:40)
[2020-11-09] MEDS: MELATONIN 5 MG TABLET 10 MG PO (21:40)
[2020-11-09] MEDS: SODIUM CHLORIDE NASAL GEL 14.1 GM 1 APPLIC NASAL (21:40)
[2020-11-10] VITALS (12 sets, daily range): BP systolic 110–127; BP diastolic 67–78; PULSE 66–102; RESP 18–20; TEMP 36.4–37.1; O2SAT 91–99
[2020-11-10] MEDS: ALBUTEROL SULFATE (*SP) INHALER 4 PUFF INHALATION ×4 (02:13→20:39)
[2020-11-10] MEDS: guaiFENesin/DEXTROMETHORPHAN 10 ML UDC PO ×3 (04:16→21:26)
[2020-11-10 07:21] LABS: Hemoglobin 12.3 g/dL (14.0-18.0); Mean Corpuscular HGB Conc 34.2 g/dl (32-36); Mean Corpuscular Hemoglobin 32.4 pg (26-34); Mean Corpuscular Volume 94.7 fl (80-100); Mean Platelet Volume 8.4 fl (7.4-10.4); Platelet Count Result 405 k/mm3 (150-375); White Blood Count 12.6 K/mm3 (4.5-10.0)
[2020-11-10] MEDS: ENOXAPARIN 40 MG/0.4 ML SYRINGE SUB-Q (08:31)
[2020-11-10] MEDS: OMEGA 3 POLYUNSAT FATTY ACIDS 1 GM CAP PO (08:31)
[2020-11-10] MEDS: MULTIVITAMINS THERAPEUTIC TAB (*BKC) 1 TABLET PO (08:31)
[2020-11-10] MEDS: gemfibroziL 600 MG TABLET PO ×2 (08:32→16:45)
[2020-11-10] MEDS: HYDROcodone/acetaminophen (*CRX) 5-325 MG TABLET 1 TAB PO (08:32)
[2020-11-10] MEDS: BENZOCAINE/MENTHOL (*BKC) 18 EA LOZENGE 1 LOZENGE PO (08:32)
[2020-11-10] MEDS: FAMOTIDINE 20 MG TABLET PO ×2 (08:32→21:19)
[2020-11-10 09:45] LABS: Alanine Aminotransferase 189 U/L (4-50); Albumin Level 3.7 g/dL (3.5-5.1); Alkaline Phosphatase 73 U/L (38-126); Anion Gap 11 mmol/L (8-16); Aspartate Amino Transferase 91 U/L (17-59); Bilirubin,Total 0.7 mg/dL (0.2-1.3); Blood Urea Nitrogen 17 mg/dL (9-20); CRP 6.9 mg/dL (<1.0); Calcium 9.2 mg/dL (8.4-10.2); Carbon Dioxide 20 mmol/L (22-30); Chloride 106 mmol/L (98-107); Estimated CRCL calculation 153 ml/min; Estimated Glomerular Filt Rate > 60; Glucose 110 mg/dL (65-110); Potassium 4.6 mmol/L (3.4-5.0); Sodium 137 mmol/L (137-145)
--- NOTE | 2020-11-10 11:20 | PCRCNOTE ---
HOME O2 EVAL COMPLETE. NO HOME O2 NEEDED AT THIS TIME.
[2020-11-10] MEDS: REMDESIVIR 100 MG/NS 250 ML 100 MG/250 ML BAG 250 MG IVPB (13:09)
--- NOTE | 2020-11-10 13:55 | PM.IMPN ---
Progress Note: A&P Assessment and Plan (1) Pneumonia due to COVID-19 virus: Code(s): U07.1 - COVID-19; J12.82 - Pneumonia due to coronavirus disease 2019 Status: Acute Assessment and Plan: Patient was tested positive for COVID on Saturday11/02/2020 Shortness of breath with activity and talking 96% on Room Air Supplemental oxygen wean to maintain a saturation greater than 90% Remdesivir and Decadron x5 days (day #5) Lovenox 40 mg subQ daily Consider Tocilizumab if oxygen requirement continues to elevate CTA negative for PE, but did show COVID pneumonia Inhalers Q6hrs scheduled Guaifenesin 600 mg q.12 Encourage prone positioning (2) Acute respiratory failure with hypoxia: Code(s): J96.01 - Acute respiratory failure with hypoxia Status: Acute Assessment and Plan: See above (3) Elevated d-dimer: Code(s): R79.89 - Other specified abnormal findings of blood chemistry Status: Acute Assessment and Plan: CTA showed COVID and PE Decreased with other inflammatory markers, elevated due to COVID PNA (4) Hyperlipidemia: Code(s): E78.5 - Hyperlipidemia, unspecified Status: Acute Assessment and Plan: Continue home medications Time Spent With Patient Time with patient: 25 - 35 minutes Subjective Date/time seen: 11/10/20 13:55 Interval history: Patient is a 35-year-old female with a past medical history of hyperlipidemia who presented to the ED with increased shortness of breath after having a Positive COVID Test 11/02/20 and he was Unvaccinated. Date of service 11/10/2020: Patient reports feeling better today. He has minimal leg cramping but otherwise she is still having diffuse body aches. Denies any fevers, chills. His breathing is improved at this time. Continues to have a dry cough. Denies any chest pain, nausea, vomiting, abdominal pain, leg swelling, or any other symptoms at this time. Review of Systems Review of Systems: All systems reviewed & are unremarkable except as noted in HPI and below Exam Narrative: General: 35-year-old man sitting up the chair watching TV. Appears comfortable on 1.5L via NC. In no acute distress. Skin: No jaundice or cyanosis. Good skin turgor. Neck: Full range of motion. Supple. Respiratory: Lungs are clear to auscultation bilaterally. No wheezing, rales or rhonchi. Cardiovascular: The heart has a regular rate and rhythm without murmur. Lower extremities: No lower extremity edema. Distal pulses are easily palpated. No calf tenderness to palpation. Gastrointestinal: The abdomen is soft, nontender and nondistended with active bowel sounds. Psychiatric: Lucid and oriented. Memory intact. Neurologic: No focal deficits. Speech is clear. No facial drooping. Objective Data Vital Signs Vital Signs: Vital Signs - 24 hr 11/09/20 16:00 11/09/20 20:00 11/09/20 20:37 Temperature 98.1 F 97.7 F Pulse Rate 96 95 Respiratory Rate 18 18 Blood Pressure 118/75 114/67 Pulse Oximetry 94 97 95 11/09/20 22:00 11/09/20 22:59 11/09/20 23:47 Temperature 97.7 F 96.9 F L Pulse Rate 95 60 Respiratory Rate 18 18 Blood Pressure 114/67 103/64 Pulse Oximetry 98 94 96 11/10/20 04:00 11/10/20 04:04 11/10/20 04:23 Temperature 97.8 F Pulse Rate 66 Respiratory Rate 18 Blood Pressure 110/67 Pulse Oximetry 99 97 93 11/10/20 05:31 11/10/20 09:07 11/10/20 10:00 Temperature 97.8 F Pulse Rate 66 85 Respiratory Rate 18 Blood Pressure 110/67 Pulse Oximetry 99 94 94 11/10/20 10:05 11/10/20 10:15 11/10/20 12:00 Temperature 98.7 F Pulse Rate 100 84 89 Respiratory Rate 20 Blood Pressure 121/74 Pulse Oximetry 91 94 94 Intake/Output Intake/Output: Intake & Output 11/07/20 11/08/20 11/09/20 11/10/20 23:59 23:59 23:59 23:59 Intake Total 3100 3840 3475 1310 Output Total 350 1650 300 Balance 2750 2190 3175 1310
[2020-11-10] MEDS: MELATONIN 5 MG TABLET 10 MG PO (21:19)
[2020-11-10] MEDS: SODIUM CHLORIDE NASAL GEL 14.1 GM 1 APPLIC NASAL (21:19)
[2020-11-10] MEDS: ACETAMINOPHEN 325 MG TABLET 650 MG PO (21:25)
[2020-11-11] VITALS (8 sets, daily range): BP systolic 93–123; BP diastolic 56–68; PULSE 64–94; RESP 12–20; TEMP 36.2–37.4; O2SAT 92–98
[2020-11-11] MEDS: ALBUTEROL SULFATE (*SP) INHALER 4 PUFF INHALATION ×3 (03:40→17:15)
[2020-11-11] MEDS: guaiFENesin/DEXTROMETHORPHAN 10 ML UDC PO ×2 (06:07→11:52)
[2020-11-11 07:12] LABS: Basophils Absolute Auto 0.1 K/mm3 (0.0-0.1); Basophils Percent Auto 0.9 % (0.2-1.2); Eosinophils Absolute Auto 0.1 K/mm3 (0-0.3); Eosinophils Percent Auto 0.5 % (0-4.4); Hemoglobin 12.5 g/dL (14.0-18.0); Immature Granulocyte Absolute 1.16 K/mm3 (0.00-0.031); Immature Granulocyte Percent A 8.3 % (0-0.5); Lymphocytes Absolute Auto 3.21 K/mm3 (0.9-3.2); Mean Corpuscular HGB Conc 33.8 g/dl (32-36); Mean Corpuscular Hemoglobin 32.1 pg (26-34); Mean Corpuscular Volume 95.1 fl (80-100); Mean Platelet Volume 8.3 fl (7.4-10.4); Monocytes Absolute Auto 0.9 K/mm3 (0.1-0.6); Monocytes Percent Auto 6.7 % (2.6-8.5); Neutrophils Absolute Auto 8.5 K/mm3 (1.3-6.7); Neutrophils Percent Auto 60.6 % (45.5-73.1); Nucleated Red Blood Cells Perc 0.1 % (0.0-0.2); Platelet Count Result 450 k/mm3 (150-375); Red Blood Count 3.89 M/mm3 (4.6-6.20); Red Cell Distribution Width 13.2 % (11.5-14.5)
[2020-11-11 07:26] LABS: Alanine Aminotransferase 173 U/L (4-50); Albumin Level 3.8 g/dL (3.5-5.1); Alkaline Phosphatase 72 U/L (38-126); Anion Gap 11 mmol/L (8-16); Aspartate Amino Transferase 61 U/L (17-59); Bilirubin,Total 0.5 mg/dL (0.2-1.3); Blood Urea Nitrogen 18 mg/dL (9-20); CRP 3.2 mg/dL (<1.0); Carbon Dioxide 22 mmol/L (22-30); Chloride 106 mmol/L (98-107); Estimated CRCL calculation 136 ml/min; Estimated Glomerular Filt Rate > 60; Glucose 112 mg/dL (65-110); Potassium 4.3 mmol/L (3.4-5.0); Sodium 139 mmol/L (137-145)
[2020-11-11 07:39] LABS: INR 1.1; Prothrombin Time 14.4 Seconds (11.1-14.7)
[2020-11-11] MEDS: OMEGA 3 POLYUNSAT FATTY ACIDS 1 GM CAP PO (09:19)
[2020-11-11] MEDS: MULTIVITAMINS THERAPEUTIC TAB (*BKC) 1 TABLET PO (09:19)
[2020-11-11] MEDS: gemfibroziL 600 MG TABLET PO ×2 (09:19→17:14)
[2020-11-11] MEDS: FAMOTIDINE 20 MG TABLET PO (09:20)
[2020-11-11] MEDS: ENOXAPARIN 40 MG/0.4 ML SYRINGE SUB-Q (09:20)
[2020-11-11] MEDS: BENZOCAINE/MENTHOL (*BKC) 18 EA LOZENGE 1 LOZENGE PO (09:22)
[2020-11-11 10:17] LABS: Hepatitis B Surface Antigen Negative (Negative)
[2020-11-11 10:23] LABS: HAV RESULT Negative (Negative); Hepatitis B Core IgM Result Negative (Negative)
[2020-11-11 10:35] LABS: Hepatitis C Virus Antibody Negative (Negative)
[2020-11-11] MEDS: REMDESIVIR 100 MG/NS 250 ML 100 MG/250 ML BAG 250 MG IVPB (11:47)
--- NOTE | 2020-11-11 14:40 | PM.DS ---
DS: Admitting Diagnosis Discharge Date 11/11/20 Admitting Diagnosis SOB DS: Discharge Diagnosis Discharge Diagnosis (1) Pneumonia due to COVID-19 virus: Code(s): U07.1 - COVID-19; J12.82 - Pneumonia due to coronavirus disease 2018 Status: Acute Assessment and Plan: Patient is a 35-year-old patient with a history of hyperlipidemia, who presented to the emergency room with increased shortness of breath. He was diagnosed with COVID on Saturday11/02/2020. He continued to have increased shortness of breath, fevers, generalized weakness and came to the ER for further evaluation. Initial vitals showed blood pressure 125/68, tachycardic heart rate 116, low-grade fever and 99.1?, normal oxygenation on room air. Initial labs showed normal white blood cell count neutrophils 81%, normocytic anemia with a hemoglobin of 12, D-dimer elevated at 7.7. Slight hyponatremia at 134. Elevated liver functions, elevated LDH, CRP. Chest x-ray showed patchy bilateral lung disease consult pneumonia. CTA chest showed no PE. Extensive patchy bilateral peripheral and lower lung predominant lung disease consistent with COVID pneumonia. The patient was admitted into the hospital with COVID-19 and had desaturations now requiring oxygen. He was started on Remdesivir and Decadron x5 days, Lovenox 40 mg subQ daily, Inhalers Q6hrs scheduled. During the patient's admission he slowly improved and was able to be weaned off of oxygen. He continued to have some shortness breath with exertion is at his oxygen saturation never became hypoxic. He did report coughing up some yellow sputum production as well as white blood cell count increasing slightly every day. I did decide to discharge him with 7 days of oral antibiotics for treatment of possible secondary bacterial pneumonia. The patient was stable for discharge at this time return home and continue dexamethasone and follow-up with primary care provider in 1 week. (2) Acute respiratory failure with hypoxia: Code(s): J96.01 - Acute respiratory failure with hypoxia Status: Acute (3) Elevated d-dimer: Code(s): R79.89 - Other specified abnormal findings of blood chemistry Status: Acute (4) Hyperlipidemia: Code(s): E78.5 - Hyperlipidemia, unspecified Status: Acute DS: Summary Hospital Course Hospital Course: See above Status at Discharge Cognitive/behavioral status at discharge: Stable, improved. Time Spent with Patient Time attestation: Total time spent providing and/or coordinating discharge services: 43 Time spent: Greater than 30 minutes Exam Narrative: General: 35-year-old man sitting up in bed on his phone. Appears comfortable on room air. In no acute distress. Skin: No jaundice or cyanosis. Good skin turgor. Neck: Full range of motion. Supple. Respiratory: Lungs are clear to auscultation bilaterally. No wheezing, rales or rhonchi. Cardiovascular: The heart has a regular rate and rhythm without murmur. Lower extremities: No lower extremity edema. Distal pulses are easily palpated. No calf tenderness to palpation. Gastrointestinal: The abdomen is soft, nontender and nondistended with active bowel sounds. Psychiatric: Lucid and oriented. Memory intact. Neurologic: No focal deficits. Speech is clear. No facial drooping. DS: Data Data Completed and Pending Labs on day of discharge: Labs from last 24 hours 11/11/20 11/11/20 11/11/20 06:39 06:39 06:39 WBC 14.0 H RBC 3.89 L Hgb 12.5 L Hct 37.0 L MCV 95.1 MCH 32.1 MCHC 33.8 RDW 13.2 Plt Count 450 H MPV 8.3 Immature Gran % (Auto) 8.3 H Neut % (Auto) 60.6 Lymph % (Auto) 23.0 [place] % (Auto) 6.7 Eos % (Auto) 0.5 Baso % (Auto) 0.9 Lymph # (Auto) 3.21 H [place] # (Auto) 0.9 H Eos # (Auto) 0.1 Baso # (Auto) 0.1 Abs Immat Gran (auto) 1.16 H Absolute Neuts (auto) 8.5 H Absolute Nucleated RBC 0.0 Nucleated RBC % 0
== END 2020-11-11 18:35 | disposition home or self-care (01) | DRG 177 ==
LOC: ANHED 20:52 → ANH3MEDSUR 21:51
PROVIDERS: Emergency Medicine; Internal Medicine; Nurse Practitioner; Admitting Provider Internal Medicine; Emergency Provider Emergency Medicine; Visit Provider Physician Assistant
DX: U07.1 COVID-19 (principal); J12.82 Pneumonia due to coronavirus disease 2019; J96.01 Acute respiratory failure with hypoxia; J15.9 Unspecified bacterial pneumonia; R79.89 Other specified abnormal findings of blood chemistry; E78.5 Hyperlipidemia, unspecified; K21.9 Gastro-esophageal reflux disease without esophagitis; Z79.899 Other long term (current) drug therapy; Z87.891 Personal history of nicotine dependence
CPT/HCPCS: 36415; 71045; 71275; 80048; 80053; 80074; 82565; 82728; 83615; 83735; 84145; 84460; 85025; 85027; 85380; 85610; 86140; 93005; 93970; 94618; 94640; 96372; 96374; 96375; 96376; 99285; A9270; G0378; J1100; J1650; J1956; Q9967